=== PATIENT | female | born 1980 | race Caucasian/White ===

== ENCOUNTER 2017-03-28 05:28 | Inpatient (IN) | payer MEDICAID ==
[~2017-03-28] VITALS: Ht 165.1 cm; Wt 98.5 kg
[2017-03-28 06:03] VITALS: Ht 165.1 cm; Wt 98.5 kg
[2017-03-28 06:04] VITALS: BP 112/75; PULSE 76; RESP 16
[2017-03-28] MEDS: LACTATED RINGER'S 1,000 ML IV SCH ×5 (06:19→21:34)
[2017-03-28] MEDS ORDERED: CEFAZOLIN 2 GM/50 ML (PMX) 50 ML IV SCH (06:30)
[2017-03-28] MEDS ORDERED: METHYLERGONOVINE 0.2 MG INJ IM PRN (06:30)
[2017-03-28] MEDS ORDERED: OXYTOCIN 30 UNITS/LR 500 ML IV PRN (06:30)
[2017-03-28] MEDS ORDERED: MISOPROSTOL 200 MCG TAB PR PRN ×2 (06:30→08:30)
[2017-03-28] MEDS ORDERED: OXYTOCIN 30 UNITS/LR 500 ML IV SCH (06:30)
[2017-03-28] MEDS ORDERED: CARBOPROST 250 MCG INJ IM PRN (06:30)
[2017-03-28 06:46] LABS: BASOPHILS % 0.5 % (0.0-2.0); EOSINOPHILS % 0.5 % (0.0-7.0); HEMATOCRIT 37.7 % (37.0-47.0); LYMPHOCYTES # 1.7 10^3/ul (0.8-2.9); LYMPHOCYTES % 25.4 % (15.0-51.0); MEAN CORPUSCULAR HEMOGLOBIN 31.1 pg (29.0-33.0); MEAN CORPUSCULAR HGB CONC 34.5 g/dl (32.0-37.0); MEAN CORPUSCULAR VOLUME 90.2 fl (82.0-101.0); MEAN PLATELET VOLUME 10.6 fl (7.4-10.4); MONOCYTE # 0.6 10^3/ul (0.3-0.9); MONOCYTES % 8.5 % (0.0-11.0); NEUTROPHIL # 4.2 10^3/ul (1.6-7.5); NEUTROPHILS % 64.6 % (39.0-77.0); PLATELET COUNT 245 10^3/UL (140-415); RED BLOOD COUNT 4.18 10^6/ul (4.20-5.40); RED CELL DISTRIBUTION WIDTH 12.7 % (11.5-14.5); WHITE BLOOD COUNT 6.5 10^3/ul (4.8-10.8)
[2017-03-28 07:05] LABS: INR 0.85; PROTIME 11.6 Sec (12.2-14.2); PT RATIO 0.9
[2017-03-28 07:06] LABS: PARTIAL THROMBOPLASTIN TIME 26.9 Sec (25.0-35.0)
[2017-03-28] MEDS ORDERED: OXYTOCIN 10 UNIT INJ ONE (08:04)
[2017-03-28] MEDS ORDERED: METOCLOPRAMIDE 10 MG INJ ONE (08:04)
[2017-03-28] MEDS ORDERED: OXYTOCIN 30 UNITS/LR 500 ML IV ONE (08:04)
[2017-03-28] MEDS ORDERED: EPHEDrine SULFATE 50 MG/5 ML SYG ONE (08:04)
[2017-03-28] MEDS ORDERED: morphine SULFATE/PF (10 MG/10 ML) INJ ONE (08:04)
[2017-03-28] MEDS ORDERED: ONDANSETRON 4 MG INJ ONE (08:04)
--- NOTE | 2017-03-28 08:04 | HP ---
Date/Time of Note Date/Time of Note DATE: 03/28/17 TIME: 08:01 Assessment/Plan VTE Prophylaxis VTE Prophylaxis Intervention: SCD's Lines/Catheters IV Catheter Type (from Nrs): Peripheral IV Assessment/Plan Assessment/Plan Assessment: IUP 39 weeks h/o previous Desires repeat Desires permanent sterilization Plan: Repeat Delivery Tubal ligation may be done by either salpingectomy or modified cruz BTL HPI/ROS Admit Date/Time Admit Date/Time Mar 28, 2017 at 05:28 Hx of Present Illness HISTORY OF PRESENT ILLNESS: The patient with history of previous delivery, who desires to have repeat delivery and Permanent sterilization. I discussed with the patient the risks, benefits, indications, and alternatives of procedure including but not limited to risks of infection, bleeding, damage to other organs, bowel, bladder, hernia formation, scar formation, possibility of blood transfusion, possible need for emergency hysterectomy, as well as the fact that tubal ligation may fail and there is 1 to 2% risk of failure over lifetime of tubal ligations and the fact that tubal ligation is permanent and irreversible. She was allowed to ask questions. All her questions were answered. Informed consent has been obtained. ROS Review of Systems: Constitutional: Denies nausea, vomiting, Fever, Chills, weight loss Eyes: denies pain, discharge or redness Nose: denies pain or bleeding Respiratory: denies SOB, cough or wheezing Cardiovascular: denies chest pain, palpitations or lightheadedness Gastrointestinal: Denies nausea, vomiting, blood in stool Genitourinary: Denies hematuria, dysuria, or flank pain Musculoskeletal: Denies joint pain or swelling Skin: Denies rash, erythema or laceration Neuro: Denies confusion, seizure, headache or dizziness Endocrine: Denies excessive urination or drinking PMH/Family/Social Past Medical History none Past Surgical History Past Surgical Hx: appendectomy, cholecystectomy, other (wrist, C/s) Family History Significant Family History: no pertinent family hx Social History Alcohol Use: none Smoking Status: Never smoker Drug Use: none Exam/Review of Systems Vital Signs Vitals Vital Signs Date Time Temp Pulse Resp B/P Pulse Ox O2 Delivery O2 Flow Rate FiO2 03/28/17 06:04 98.4 76 16 112/75 Room Air Intake and Output 03/27/17 03/27/17 03/28/17 15:00 23:00 07:00 Intake Total 100 ml Balance 100 ml Exam Constitutional: alert, oriented, well developed Psych: nl mood/affect, no complaints Head: atraumatic, normocephalic Eyes: EOMI, PERRL, nl conjunctiva, nl lids, nl sclera ENMT: nl external ears & nose, nl lips & teeth, nl nasal mucosa & septum Neck: non-tender, supple Respiratory: clear to auscultation, normal air movement Cardiovascular: nl pulses, regular rate and rhythm Gastrointestinal: nl liver, spleen, non-tender, soft Musculoskeletal: nl extremities to inspection Extremities: normal pulses Neurological: STEAM[employer] WORK[employer] II-XII intact, nl mental status, nl speech, nl strength Skin: nl turgor, No rash or lesions Lymph: nl lymph nodes Labs Result Diagram: 03/28/17 0613 Medications Medications Current Medications Lactated Ringer's 1,000 ml @ 125 mls/hr Q8H IV Last administered on 03/28/17t 07:39; Admin Dose 125 MLS/HR; Start 03/28/17 at 06:05 Cefazolin Sodium/ Dextrose 50 ml @ 100 mls/hr ONCE IV ; Start 03/28/17 at 06:30 Oxytocin/Lactated Ringer's 500 ml @ 125 mls/hr ONCE IV ; Start 03/28/17 at 06: 30 Oxytocin/Lactated Ringer's 500 ml @ 0 mls/hr ONCE PRN IV For Hemorrhage Management; Start 03/28/17 at 06:30 Methylergonovine Maleate (Methergine) 0.2 mg ONCE PRN IM VAGINAL BLEEDING; Start 03/28/17 at 06:30 Carboprost Tromethamine (Hemabate) 250 mcg ONCE PRN IM VAGINAL BLEEDING; Start 03/28/17 at 06:30 Misoprostol (Cytotec) 1,000 mcg ONCE PRN NC VAGINAL BLEEDING; Start 03/28/17 at 06:30 MILI CORTES MD Mar 28, 2017 08:04
[2017-03-28] MEDS ORDERED: NA PHOSPHATE/BIPHOS 133 ML ENEMA PR PRN (08:30)
[2017-03-28] MEDS ORDERED: OXYCODONE/ACETAMINOPHEN (5/325) TAB PO PRN ×2 (08:30)
[2017-03-28] MEDS ORDERED: LANOLIN 7 GM TUBE TOP PRN (08:30)
--- NOTE | 2017-03-28 09:19 | OPR ---
Date/Time of Note Date/Time of Note DATE: 03/28/17 TIME: 09:10 Operative Report Free Text/Dictation DATE OF OPERATION: 03/28/2017 PREOPERATIVE DIAGNOSES: 1. Term , history of previous delivery: 2. Desires repeat delivery. 3. Desires permanent sterilization POSTOPERATIVE DIAGNOSES: 1. Same 2. Pelvic adhesions to tubes/ovaries OPERATION PERFORMED: Repeat delivery Bilateral distal salpingectomy SURGEON: Paty Mancia MD FEATHEREDGE MACHINE OPERATOR: Reji Burt MD ESTIMATED BLOOD LOSS: 700 mL. COMPLICATIONS: None. Anesthesia: Spinal Grafts: none Implants: none Blood transfusion: none The risks, benefits, indications, alternatives of procedure including, but not limited to risk of infection, bleeding, damage to other organs, bowel, bladder, hernia formation, scar formation, possibility of blood transfusions, the risks of tubal ligation such as failure and future pregnancies were discussed with the patient. The fact that BTL is permanent and irreversible also discussed with patient. She was allowed to ask questions. All her questions were answered. Informed consent was obtained. DESCRIPTION OF PROCEDURE: She was taken to the operating room. Spinal anesthesia was induced. She was prepped and draped in the usual sterile fashion. Surgical time out one. Anesthesia was tested to be adequate. With permission from anesthesiologist, a knife was used to make a Pfannenstiel skin incision. The incision was taken down in layers. The fascia was cut, undermined and from the underlying muscle using sharp and blunt dissection. All the bleeders were cauterized. Peritoneum was entered bluntly. A low transverse incision was developed over the uterus. Amniotic fluid was clear and adequate. A viable in vertex presentation was delivered without any difficulty. The cord was clamped and cut, handed to awaiting team. Placenta was then delivered. Uterus was exteriorized, wrapped around a moist lap. Inside uterus was cleaned using a dry lap. All residual membranes were removed. The uterine incision was then closed using #1 Monocryl in 2 layers. A 5 cm distal end of the right tube was ligated 3 times using 0 plain tie and the ligated portion was cut, sent to pathology. Same procedure could not be done on the contralateral side due to tube was adherent to ovary on the left side. I proceeded with lysis of adhesions using cautery. I was able to free he distal end of tube. A 3 cm distal end of the right tube was ligated 3 times using 0 plain tie and the ligated portion was cut, sent to pathology. for abundance of precaution a 5 cm mid ampullary area of the left tube was also ligated 3 times using 0 plain tie and the ligated portion was cut, sent to pathology The uterus was inserted back inside the abdominal cavity. Irrigation was done carefully. Careful evaluation of the uterine incision revealed no further bleeding. The tubal ligation sites were evaluated carefully. There was no bleeding. The peritoneum and rectus muscles and fascia were evaluated. All bleeders cauterized. Peritoneum was closed using 2-0 Monocryl. At this time, the count was correct. Rectus fascia was reapproximated using 2-0 Monocryl. Rectus fascia was closed using #1 Vicryl. Subcutaneous tissue was cleaned and irrigated. All bleeders cauterized and the skin closed using 4-0 Monocryl. All counts correct. Surgeon see signature line Specimens bilateral segments of tubes Pt Condition Post Procedure: stable Disposition: PACU PATY MANCIA MD Mar 28, 2017 09:19
[2017-03-28] MEDS ORDERED: morphine SULFATE/PF (10 MG/10 ML) INJ SPINAL ONE (10:00)
[2017-03-28] MEDS ORDERED: ONDANSETRON 4 MG INJ IV PRN (10:00)
[2017-03-28] MEDS ORDERED: NALOXONE (0.4 MG/ML) INJ IV PRN (10:00)
[2017-03-28] MEDS ORDERED: EPHEDrine SULFATE 50 MG/5 ML SYG IV PRN (10:00)
[2017-03-28] MEDS ORDERED: morphine 2 MG INJ IV PRN (10:00)
[2017-03-28] MEDS ORDERED: morphine 4 MG/ML VIAL IV PRN (10:00)
[2017-03-28] MEDS ORDERED: DIPHENHYDRAMINE 50 MG INJ IV PRN (10:00)
[2017-03-28] MEDS: KETOROLAC 30 MG INJ IV PRN (10:55)
[2017-03-28 11:30] VITALS: BP 110/58; PULSE 78; RESP 18
[2017-03-28] MEDS: SENNA/DOCUSATE NA (8.6MG/50MG) TAB PO SCH ×2 (12:00→21:34)
[2017-03-28] MEDS: IBUPROFEN 600 MG TAB PO SCH ×2 (12:00→15:41)
[2017-03-28 12:30] VITALS: BP 118/54; PULSE 84; RESP 19
[2017-03-28 15:45] VITALS: BP 108/59; PULSE 78; RESP 17
[2017-03-28 19:29] VITALS: BP 95/52; PULSE 75; RESP 18
[2017-03-29] VITALS: BP 100/59; PULSE 69; RESP 18
[2017-03-29 04:00] VITALS: BP 98/56; PULSE 80; RESP 18
[2017-03-29] MEDS: KETOROLAC 30 MG INJ IV PRN (05:41)
[2017-03-29] MEDS: LACTATED RINGER'S 1,000 ML IV SCH ×3 (05:47→08:04)
[2017-03-29] MEDS: IBUPROFEN 600 MG TAB PO SCH ×4 (06:00→17:19)
[2017-03-29 08:00] VITALS: BP 108/62; PULSE 72; RESP 18
[2017-03-29] MEDS: SENNA/DOCUSATE NA (8.6MG/50MG) TAB PO SCH ×2 (09:40→21:43)
[2017-03-29 10:09] LABS: BASOPHILS % 0.3 % (0.0-2.0); EOSINOPHILS # 0.1 10^3/ul (0.0-0.5); EOSINOPHILS % 1.2 % (0.0-7.0); HEMATOCRIT 35.2 % (37.0-47.0); HEMOGLOBIN 11.8 g/dl (12.0-16.0); LYMPHOCYTES # 1.1 10^3/ul (0.8-2.9); LYMPHOCYTES % 14.7 % (15.0-51.0); MEAN CORPUSCULAR HEMOGLOBIN 30.7 pg (29.0-33.0); MEAN CORPUSCULAR HGB CONC 33.5 g/dl (32.0-37.0); MEAN CORPUSCULAR VOLUME 91.7 fl (82.0-101.0); MEAN PLATELET VOLUME 10.5 fl (7.4-10.4); MONOCYTE # 0.5 10^3/ul (0.3-0.9); MONOCYTES % 5.8 % (0.0-11.0); NEUTROPHILS % 77.5 % (39.0-77.0); PLATELET COUNT 246 10^3/UL (140-415); RED BLOOD COUNT 3.84 10^6/ul (4.20-5.40); RED CELL DISTRIBUTION WIDTH 13.2 % (11.5-14.5); WHITE BLOOD COUNT 7.7 10^3/ul (4.8-10.8)
--- NOTE | 2017-03-29 12:21 | PN ---
Date/Time of Note Date/Time of Note DATE: 03/29/17 TIME: 12:19 OB Subjective Subjective Subjective Has any complaint. Pain well controlled with p.o. pain medication. Breast- feeding. Has passed flatus. Denies any nausea vomiting. Tolerated regular diet. Eating decreased. Ambulating. Urinated. Denies any depressive symptoms OB Objective Objective Objective Appearance: Alert and oriented 4. Patient does not appear to be in any acute distress. Obese Breast: No evidence of engorgement mastitis or fissure Abdomen: Soft. Appropriate tenderness in the incision. Incision: Dry and intact evidence of old blood on the dressing No evidence of active bleeding Extremity: No calf tenderness, no click, negative Homans sign, no cords palpable , 1+ bilateral nonpitting edema Hematology - 72 Hrs Test 03/28/17 06:13 03/29/17 09:29 White Blood Count 6.510^3/ul (4.8-10.8) 7.710^3/ul (4.8-10.8) Red Blood Count 4.1810^6/ul (4.20-5.40) L 3.8410^6/ul (4.20-5.40) L Hemoglobin 13.0g/dl (12.0-16.0) 11.8g/dl (12.0-16.0) L Hematocrit 37.7% (37.0-47.0) 35.2% (37.0-47.0) L Mean Corpuscular Volume 90.2fl (82.0-101.0) 91.7fl (82.0-101.0) Mean Corpuscular Hemoglobin 31.1pg (29.0-33.0) 30.7pg (29.0-33.0) Mean Corpuscular Hemoglobin Concent 34.5g/dl (32.0-37.0) 33.5g/dl (32.0-37.0) Red Cell Distribution Width 12.7% (11.5-14.5) 13.2% (11.5-14.5) Platelet Count 97677^3/UL (140-415) 80907^3/UL (140-415) Mean Platelet Volume 10.6fl (7.4-10.4) H 10.5fl (7.4-10.4) H Neutrophils % 64.6% (39.0-77.0) 77.5% (39.0-77.0) H Lymphocytes % 25.4% (15.0-51.0) 14.7% (15.0-51.0) L Monocytes % 8.5% (0.0-11.0) 5.8% (0.0-11.0) Eosinophils % 0.5% (0.0-7.0) 1.2% (0.0-7.0) Basophils % 0.5% (0.0-2.0) 0.3% (0.0-2.0) Nucleated Red Blood Cells % 0.0/100WBC (0.0-0.0) 0.0/100WBC (0.0-0.0) Neutrophils # 4.210^3/ul (1.6-7.5) 6.010^3/ul (1.6-7.5) Lymphocytes # 1.710^3/ul (0.8-2.9) 1.110^3/ul (0.8-2.9) Monocytes # 0.610^3/ul (0.3-0.9) 0.510^3/ul (0.3-0.9) Eosinophils # 0.010^3/ul (0.0-0.5) 0.110^3/ul (0.0-0.5) Basophils # 0.010^3/ul (0.0-0.1) 0.010^3/ul (0.0-0.1) Nucleated Red Blood Cells # 0.010^3/ul (0.0-0.0) 0.010^3/ul (0.0-0.0) OB Assessment/Plan Other Assessment: Postoperative day #1 Status post repeat and bilateral tubal sterilization Doing well Continue routine postop care ANTHONY CATHERINE MD Mar 29, 2017 12:21
[2017-03-29 16:00] VITALS: BP 127/69; PULSE 87; RESP 18
[2017-03-29 20:00] VITALS: BP 109/71; PULSE 84; RESP 18
[2017-03-30] MEDS: IBUPROFEN 600 MG TAB PO SCH ×5 (00:02→23:38)
[2017-03-30 04:00] VITALS: BP 107/61; PULSE 76; RESP 18
[2017-03-30 07:50] VITALS: BP 109/58; PULSE 90; RESP 18
--- NOTE | 2017-03-30 08:52 | DS ---
Date/Time of Note Date/Time of Note DATE: 03/30/17 TIME: 08:48 Discharge Summary Admission/Discharge Info Admit Date/Time Mar 28, 2017 at 05:28 Discharge Date/Time 03/30/2017 Discharge Diagnosis s/p repeat delivery and bilateral salpingectomies Patient Condition: Good Consults none Procedures repeat delivery and bilateral salpingectomies Hx of Present Illness HISTORY OF PRESENT ILLNESS: The patient with history of previous delivery, who desires to have repeat delivery and Permanent sterilization. I discussed with the patient the risks, benefits, indications, and alternatives of procedure including but not limited to risks of infection, bleeding, damage to other organs, bowel, bladder, hernia formation, scar formation, possibility of blood transfusion, possible need for emergency hysterectomy, as well as the fact that tubal ligation may fail and there is 1 to 2% risk of failure over lifetime of tubal ligations and the fact that tubal ligation is permanent and irreversible. She was allowed to ask questions. All her questions were answered. Informed consent has been obtained. Hospital Course s/p repeat delivery and bilateral salpingectomies. post op recovery was WNL. she is tolerating regular diet, vital signs are stable and ambulating well. had flatus. good pain control on oral meds Home Meds No Active Prescriptions or Reported Meds Follow-up Plan [address] Mancia Primary Care Provider Care Physician No Primary Time spent on discharge: < 30 minutes Pending Labs Laboratory Tests Test 03/29/17 09:29 White Blood Count 7.710^3/ul (4.8-10.8) Red Blood Count 3.8410^6/ul (4.20-5.40) Hemoglobin 11.8g/dl (12.0-16.0) Hematocrit 35.2% (37.0-47.0) Mean Corpuscular Volume 91.7fl (82.0-101.0) Mean Corpuscular Hemoglobin 30.7pg (29.0-33.0) Mean Corpuscular Hemoglobin Concent 33.5g/dl (32.0-37.0) Red Cell Distribution Width 13.2% (11.5-14.5) Platelet Count 64215^3/UL (140-415) Mean Platelet Volume 10.5fl (7.4-10.4) Neutrophils % 77.5% (39.0-77.0) Lymphocytes % 14.7% (15.0-51.0) Monocytes % 5.8% (0.0-11.0) Eosinophils % 1.2% (0.0-7.0) Basophils % 0.3% (0.0-2.0) Nucleated Red Blood Cells % 0.0/100WBC (0.0-0.0) Neutrophils # 6.010^3/ul (1.6-7.5) Lymphocytes # 1.110^3/ul (0.8-2.9) Monocytes # 0.510^3/ul (0.3-0.9) Eosinophils # 0.110^3/ul (0.0-0.5) Basophils # 0.010^3/ul (0.0-0.1) Nucleated Red Blood Cells # 0.010^3/ul (0.0-0.0) MILI MANCIA MD Mar 30, 2017 08:52
[2017-03-30] MEDS: SENNA/DOCUSATE NA (8.6MG/50MG) TAB PO SCH ×2 (09:06→20:49)
[2017-03-30 16:00] VITALS: BP 116/71; PULSE 78; RESP 18
[2017-03-30 20:00] VITALS: BP 105/62; PULSE 71; RESP 18
[2017-03-31 04:00] VITALS: BP 98/56; PULSE 76; RESP 18
[2017-03-31] MEDS: IBUPROFEN 600 MG TAB PO SCH ×2 (05:37→12:39)
[2017-03-31 07:30] VITALS: BP 115/63; PULSE 72; RESP 18
[2017-03-31] MEDS ORDERED: MEASLES,MUMPS,RUBELLA VACCINE INJ SC* ONE (09:00)
[2017-03-31] MEDS ORDERED: DIPHTH/TET/ACEL PERTUSS (ADULT) 0.5 ML VIAL IM* ONE (09:00)
[2017-03-31] MEDS: SENNA/DOCUSATE NA (8.6MG/50MG) TAB PO SCH (09:48)
--- NOTE | 2017-03-31 12:03 | PN ---
Date/Time of Note Date/Time of Note DATE: 03/31/17 TIME: 12:02 OB Subjective Subjective Subjective Patient without complaints. Ready to go home. OB Objective Objective Objective Gen: NAD Abd: I-C/D/I OB Assessment/Plan Other Assessment: POD3 s/p Other plan: Discharge home. Pelvic rest and no heavy lifting. F/u with OB. MACKENZIE POPE Mar 31, 2017 12:03
--- NOTE | 2017-03-31 12:04 | DS ---
Date/Time of Note Date/Time of Note DATE: 03/31/17 TIME: 12:03 Obstetrical Discharge Record Final Diagnosis Final Diagnosis: Term delivered Section Section: Repeat Condition on Discharge Physical Assessment Last Vitals: See PN Patient Condition: Good MACKENZIE POPE Mar 31, 2017 12:04
== END 2017-03-31 15:01 | disposition home or self-care (01) | DRG 766 ==
LOC: L-D 05:28 → EDUNIT# 07:30 → L-D 08:02 → PP1 11:31
PROVIDERS: ADMIT Specialist; ATTEND Specialist
PROC: 0UT70ZZ Resection of Bilateral Fallopian Tubes, Open Approach (ICD-10-PCS; 2017-03-28)
PROC: 3E033VJ Introduction of Other Hormone into Peripheral Vein, Percutaneous Approach (ICD-10-PCS; 2017-03-28)
PROC: 10D00Z1 Extraction of Products of Conception, Low, Open Approach (ICD-10-PCS; principal; 2017-03-28 07:30)
DX: O34.211 Maternal care for low transverse scar from previous cesarean delivery (principal); N73.6 Female pelvic peritoneal adhesions (postinfective); Z30.2 Encounter for sterilization; Z37.0 Single live birth; Z3A.39 39 weeks gestation of pregnancy
CPT/HCPCS: 85025; 85610; 85730; 86592; 86850; 86900; 86901; 87340; 88302; 90715; 99464; J0690; J1885; J2274; J2405; J2590; J2765; J7120